=== PATIENT | female | born 1995 | race Asian ===

== ENCOUNTER 2017-07-28 15:25 | Emergency (ER) | payer BC, OTHER ==
--- NOTE | 2017-07-28 16:50 | RAD ---
INDICATION: Cough and fever. COMPARISON: There are no prior studies available for comparison. TECHNIQUE: A portable view of the chest was obtained. FINDINGS: Cardiac and mediastinal contours appear to be within normal limits. The lungs are clear. No pleural effusion is seen. IMPRESSION: NO EVIDENCE FOR ACUTE DISEASE.
[2017-07-28 16:59] LABS: ABS Basophils 0.1 10^3/ul (0-0.2); ABS Eosinophils 0 10^3/ul (0-0.6); ABS Lymphocytes 1.2 10^3/ul (1.0-4.8); ABS Neutrophils 5.8 10^3/ul (1.5-7.7); ABS Nucleated RBC 0 10^3/ul; Eosinophil % 0.4 % (0-6); Hematocrit 41 % (35-47); Hemoglobin 14.2 g/dl (12.0-16.0); Mean Corpuscular HGB Conc 35 g/dl (31-36); Mean Corpuscular Hemoglobin 32 pg (27-31); Mean Corpuscular Volume 91 fL (80-97); Mean Platelet Volume 7 um3 (7.4-10.4); Nucleated Red Blood Cells % 0.1; Platelet Count 219 10^3/ul (150-450); Red Blood Count 4.49 10^6/ul (4.0-5.4); Red Cell Distribution Width 14 % (10.5-15); White Blood Count 8.1 10^3/ul (3.5-10.8)
[2017-07-28 17:14] LABS: EGFR Non-African American 57.8 (>60)
[2017-07-28 17:37] VITALS: BP 113/80
--- NOTE | 2017-07-28 18:04 | ED ---
Amador Boss Angela, scribed for Trenton Jaimes MD on 07/28/17 at 1630 . Influenza-Like Illness - HPI Summary HPI Summary: This pt is a 21 y/o female presenting to [facility] c/o dry cough, fever, muscle aches, decreased appetite. Pt additionally notes generalized weakness. PMHx: mono (5 years ago). She denies tobacco, alcohol and drug use. Allergic to Keflex (reaction of rash on her face). - History of Current Complaint Chief Complaint: EDFluSymptoms Time Seen by Provider: 07/28/17 16:24 Hx Obtained From: Patient Onset/Duration: Lasting Days, Still Present Associated Signs & Symptoms: Fever, Myalgia, Cough - Allergy/Home Medications Allergies/Adverse Reactions: Allergies Allergy/AdvReac Type Severity Reaction Status Date / Time Cephalexin [From Keflex] Allergy Rash Verified 07/28/17 16:26 PMH/Surg Hx/FS Hx/Imm Hx Endocrine/Hematology History: Denies: Hx Diabetes Cardiovascular History: Denies: Hx Hypertension Psychiatric History: Denies: Hx Eating Disorder, Hx of Violent Episodes Against Others Infectious Disease History: No Infectious Disease History: Reports: Traveled Outside the [place] in Last 30 Days - Family History Known Family History: Negative: Cardiac Disease, Hypertension, Diabetes - Social History Alcohol Use: None Hx Substance Use: No Substance Use Type: Reports: None Smoking Status (MU): Never Smoked Tobacco Review of Systems Constitutional: Other - decreased appetite Positive: Fever, Chills Positive: Cough Positive: Myalgia Positive: Weakness - generalized All Other Systems Reviewed And Are Negative: Yes Physical Exam - Summary Physical Exam Summary: VITAL SIGNS: Reviewed. GENERAL: Patient is a well-developed and nourished female who is lying comfortable in the stretcher. Patient is not in any acute respiratory distress. HEAD AND FACE: No signs of trauma. No ecchymosis, hematomas or skull depressions. No sinus tenderness. EYES: PERRLA, EOMI x 2, No injected conjunctiva, no nystagmus. EARS: Hearing grossly intact. Ear canals and tympanic membranes are within normal limits. MOUTH: Oropharynx within normal limits. NECK: Supple, trachea is midline, no adenopathy, no JVD, no carotid bruit, no c- spine tenderness, neck with full ROM. CHEST: Symmetric, no tenderness at palpation LUNGS: Clear to auscultation bilaterally. No wheezing or crackles. CVS: Regular rate and rhythm, S1 and S2 present, no murmurs or gallops appreciated. ABDOMEN: Soft, non-tender. No signs of distention. No rebound no guarding, and no masses palpated. Bowel sounds are normal. EXTREMITIES: FROM in all major joints, no edema, no cyanosis or clubbing. NEURO: Alert and oriented x 3. No acute neurological deficits. Speech is normal and follows commands. SKIN: Dry and warm Triage Information Reviewed: Yes Vital Signs On Initial Exam: Initial Vitals Temp Pulse Resp BP Pulse Ox 100.1 F 118 20 122/83 96 07/28/17 15:30 07/28/17 15:30 07/28/17 15:30 07/28/17 15:30 07/28/17 15:30 Vital Signs Reviewed: Yes Diagnostics - Vital Signs Vital Signs Temp Pulse Resp BP Pulse Ox 07/28/17 16:25 16 07/28/17 15:30 100.1 F 118 20 122/83 96 - Laboratory Result Diagrams: 07/28/17 16:48 07/28/17 16:48 Lab Statement: Any lab studies that have been ordered have been reviewed, and results considered in the medical decision making process. - Radiology Chest XR Xray Interpretation: No Acute Changes - IMPRESSION: No evidence for acute disease. Dr. Jaimes has reviewed this radiology report. Radiology Interpretation Completed By: Radiologist Flu Symptom Course/Dx - Course Course Of Treatment: This pt is a 21 y/o female presenting to [facility] c/o dry cough, fever, muscle aches, decreased appetite. Pt additionally notes generalized weakness. PMHx: mono (5 years ago). She denies tobacco, alcohol and drug use. Allergic to Keflex (reaction of rash on her face). Test results without any significant abnormalities. Chest XR shows no acute pathology. Because we have limited kits for flu testing, I will treat the pt with Tamiflu for influenza. Pt understands and agrees. She will be discharged home with follow up from her PCP. - Diagnoses Provider Diagnoses: Influenza Discharge - Discharge Plan Condition: Stable Disposition: HOME Prescriptions: Oseltamivir CAP* [Tamiflu CAP*] 75 mg PO BID #10 cap Patient Education Materials: Influenza (ED) Referrals: [facility] - Rob RUSHING [Primary Care Provider] - 1 Week Additional Instructions: Please follow up with your primary care provider. RETURN TO THE ED FOR ANY WORSENING SYMPTOMS. The documentation as recorded by the Amador burgos Angela accurately reflects the service I personally performed and the decisions made by , Trenton Jaimes MD.
== END 2017-07-28 17:36 | disposition home or self-care (01) ==
LOC: ED 15:25
DX: J11.1 Influenza due to unidentified influenza virus with other respiratory manifestations (principal); R50.9 Fever, unspecified; R05 Cough; R53.1 Weakness
CPT/HCPCS: 36415; 71045; 80053; 85025; 86140; 99282

== ENCOUNTER → 2018-11-23 18:01 | Emergency (ER) | payer OTHER ==
[~2018-11-23 18:01] MED LIST: Tetan/Diph/Pertus SYR(Tdap)* 0.5 ML SYR(BOOSTRIX) use SYR IM ONE
--- NOTE | 2018-11-23 19:40 | ED ---
Laceration/Wound HPI - HPI Summary HPI Summary: Complains of laceration to fourth digit of left hand while cutting vegetables. Tetanus status unknown. Denies any other pain or injury or symptoms. - History of Current Complaint Stated Complaint: FINGER LAC LEFT RING FINGER Time Seen by Provider: 11/23/18 18:58 Hx Obtained From: Patient Mechanism of Injury: Sharp/Blunt Trauma Aggravating: Nothing Alleviating: Nothing Onset Severity: Moderate Current Severity: Moderate Pain Intensity: 5 Pain Scale Used: 0-10 Numeric Associated Signs & Symptoms: Negative - Allergy/Home Medications Allergies/Adverse Reactions: Allergies Allergy/AdvReac Type Severity Reaction Status Date / Time clindamycin Allergy Mild Rash Verified 11/24/18 08:25 MS Cephalexin [From Keflex] Allergy Rash Verified 11/24/18 08:25 Home Medications: Home Medications ZyrTEC 10 MG TAB* 10 mg PO DAILY 11/23/18 [History Confirmed 11/23/18] PMH/Surg Hx/FS Hx/Imm Hx Endocrine/Hematology History: Denies: Hx Anticoagulant Therapy Cardiovascular History: Denies: Hx Pacemaker/ICD History: Denies: Hx Dialysis Sensory History: Denies: Hx Eye Prosthesis Opthamlomology History: Denies: Hx Legally Blind EENT History: Denies: Hx Deafness Neurological History: Denies: Hx Dementia - Immunization History Date of Tetanus Vaccine: unknown Infectious Disease History: No Infectious Disease History: Denies: Traveled Outside the [place] in Last 30 Days - Family History Known Family History: Positive: Non-Contributory - Social History Alcohol Use: Occasionally Substance Use Type: Reports: None Smoking Status (MU): Never Smoked Tobacco Review of Systems Constitutional: Negative Eyes: Negative ENT: Negative Cardiovascular: Negative Respiratory: Negative Gastrointestinal: Negative Genitourinary: Negative Musculoskeletal: Negative Skin: Other Neurological: Negative Psychological: Normal All Other Systems Reviewed And Are Negative: Yes Physical Exam - Summary Physical Exam Summary: Superficial aceration to distal tip of the fourth digit of left hand. No involvement of nail or nailbed. Triage Information Reviewed: Yes Vital Signs On Initial Exam: Initial Vitals Temp Pulse Resp BP Pulse Ox 98.8 F 85 15 113/82 97 11/23/18 18:03 11/23/18 18:03 11/23/18 18:03 11/23/18 18:03 11/23/18 18:03 Vital Signs Reviewed: Yes Appearance: Positive: Well-Appearing Skin: Positive: Warm Head/Face: Positive: Normal Head/Face Inspection Eyes: Positive: Normal Neck: Positive: Supple Respiratory/Lung Sounds: Positive: Clear to Auscultation Cardiovascular: Positive: Normal Abdomen Description: Positive: Nontender Musculoskeletal: Positive: Normal Neurological: Positive: Normal Psychiatric: Positive: Normal AVPU Assessment: Alert - [place] Coma Scale Best Eye Response: 4 - Spontaneous Best Motor Response: 6 - Obeys Commands Best Verbal Response: 5 - Oriented Coma Scale Total: 15 Procedures - Laceration/Wound Repair 1 Location: upper extremity Description: Linear Length, Depth and Shape: 1.5cm x .25cm Irrigated w/ Saline (ccs): 200 Laceration/Wound Explored: clean Closure: Skin Adhesive Debridement: minimal Number of Sutures: 0 Layer Closure?: No Sterile Dressing Applied?: No Diagnostics - Vital Signs Vital Signs Temp Pulse Resp BP Pulse Ox 11/23/18 18:03 98.8 F 85 15 113/82 97 - Laboratory Lab Statement: Any lab studies that have been ordered have been reviewed, and results considered in the medical decision making process. Laceration Repair Course/Dx - Course Course Of Treatment: Complains of laceration to fourth digit of left hand while cutting vegetables. Tetanus status unknown. Denies any other pain or injury or symptoms. Physical exam:Superficial aceration to distal tip of the fourth digit of left hand. No involvement of nail or nailbed. Vital signs within normal limits. Tetanus booster administered. - Clinical Impression Provider Diagnoses: Laceration Discharge - Sign-Out/Discharge Documenting (check all that apply): Patient Departure Patient Received Moderate/Deep Sedation with Procedure: No - Discharge Plan Condition: Stable Disposition: HOME Patient Education Materials: Finger Laceration (ED), Skin Adhesive Care (ED) Referrals: No Primary Care Phys,NOPCP [Primary Care Provider] - Additional Instructions: You may wash wound starting tomorrow with warm running water and soap. Do not submerge for 5 days. Keep wound clean and dry and protected when not washing. Return to the ED for any new or worsening symptoms. - Billing Disposition and Condition Condition: STABLE Disposition: Home
[2018-11-23 19:50] VITALS: BP 100/66
== END | disposition home or self-care (01) ==
LOC: MERGE 18:01 → ED 18:01
DX: S61.215A Laceration without foreign body of left ring finger without damage to nail, initial encounter (principal); W26.9XXA Contact with unspecified sharp object(s), initial encounter; Y93.G1 Activity, food preparation and clean up; Y92.9 Unspecified place or not applicable; Z23 Encounter for immunization; Z88.1 Allergy status to other antibiotic agents
CPT/HCPCS: 12001; 90471; 90715; 99281